=== PATIENT | male | born 1990 | race Caucasian/White ===

== ENCOUNTER 2025-07-02 19:16 | Emergency (ER) | payer BC, SELFPAY ==
--- NOTE | 2025-07-02 19:20 | ECG_ITS ---
Test Date: 2025-07-02 19:27:44 Measurements Intervals [place] Rate: 75 P: 44 NE: 187 QRS: 33 QRSD: 87 T: 30 QT: 370 QTc: 414 Interpretive Statements SINUS RHYTHM WITH MARKED SINUS ARRHYTHMIA BORDERLINE ECG No previous ECG available for comparison Electronically Signed On 07-03-2025 06:23:23 [employer] by Andrew Momin D.O.
[2025-07-02 19:32] VITALS: BP 155/87; PULSE 79; RESP 20; TEMP 37.2; O2SAT 98
--- NOTE | 2025-07-02 19:41 | ED.CHESTPAIN ---
HPI - Chest Pain General Chief Complaint: Chest Pain Stated Complaint: Chest Pain Time Seen by Provider: 07/02/25 19:30 Source: patient and RN notes reviewed Mode of arrival: ambulatory Limitations: no limitations History of Present Illness HPI narrative: 34-year-old male patient presents to the [facility] complaining of chest pain for last month. Patient says it comes and goes, reports it has left-sided substernal. Is patient says it starts randomly says is worse after he drinks alcohol. Patient reports feeling a pressure or burning in his chest when it occurs. Patient last drink 2 days ago reports he drank a lot alcohol that evening. Patient denies drinking daily but reports he drinks pretty heavily on the weekends. Patient denies any cardiac history, for any significant past medical problems. Patient awaiting to see a primary doctor next week. Patient last episode occurred approximately 30 minutes ago, reports having palpitations with a occur. Related Data Home Medications ?Medication ?Instructions ?Recorded ?Confirmed ?Last Taken ?Type oxygen-air delivery systems 07/02/25 07/02/25 Unknown History Allergies Allergy/AdvReac Type Severity Reaction Status Date / Time No Known Allergies Allergy Verified 07/02/25 19:31 Review of Systems Review of Systems: CONSTITUTIONAL: Denies fever, chills, or sweats. EYES: Denies visual changes, redness, or discharge. ENT: Denies rhinorrhea, congestion, sore throat, or otalgia. CARDIOVASCULAR: Positive for chest pain and palpitations. Negative for lightheadedness, dizziness, or edema. RESPIRATORY: Denies cough or dyspnea. GASTROINTESTINAL: Denies abdominal pain, nausea, vomiting, or diarrhea. GENITOURINARY: Denies dysuria or hematuria. SKIN: Denies rash or itching. MUSCULOSKELETAL: Denies back pain, joint pain, or myalgia. NEUROLOGIC: Denies headache, numbness, or weakness. PSYCHIATRIC: Denies anxiety or depression. All other systems reviewed are negative, except as documented in HPI. PMFSH Comments At the time of my signature, I reviewed and agree with the nursing past medical, surgical, social, and family history. There is no relevant family history pertinent to the patient complaint. Exam Narrative: GENERAL: This is a well-nourished, well-developed adult, in no apparent distress. They are non ill-appearing, nontoxic appearing. Patient appears anxious. HEAD: normocephalic, atraumatic. EYES: Sclera clear/white. Conjunctiva normal. Vision is grossly intact. Extraocular movements intact EARS: External ears normal, Hearing grossly intact. NOSE: External nose normal THROAT: Mucous membranes moist, NECK: Neck supple, CARDIOVASCULAR: Regular rate and rhythm without murmurs, gallops, or rubs. RESPIRATORY: Clear to auscultation. Breath sounds equal bilaterally. No wheezes, rales, or rhonchi. GASTROINTESTINAL: Abdomen soft, non-tender, nondistended. SKIN: warm, Dry, intact with no suspicious lesions or rash, good texture and turgor. NEURO: awake, alert, and oriented to person, place and time. There were no obvious focal neurologic abnormalities. Fine tremors are present. EXTREMITIES: No joint tenderness, effusion, or edema noted. BACK: Nontender without deformity. Course Course Level of Care: Express Care Visit Vital Signs Vital signs: Vital Signs Temperature 99.0 F 07/02/25 19:32 Pulse Rate 79 07/02/25 19:32 Respiratory Rate 20 07/02/25 19:32 Blood Pressure 155/87 H 07/02/25 19:32 Pulse Oximetry 98 07/02/25 19:32 Oxygen Delivery Room Air 07/02/25 19:32 Temperature 99.0 F 07/02/25 19:32 Pulse Rate 79 07/02/25 19:32 Respiratory Rate 20 07/02/25 19:32 Blood Pressure 155/87 H 07/02/25 19:32 Pulse Oximetry 98 07/02/25 19:32 Oxygen Delivery Room Air 07/02/25 19:32 [facility] Narrative Medical decision making narrative: EKG sinus arrhythmia with no ischemic findings. Patient would benefit from a cardiac workup, fine tremors present, patient is anxious complication could be withdrawing from alcohol as well. Given patient's symptoms, it is recommend the patient seek a higher level care and proceed immediately to the emergency department. Patient does not want to go to the ER will follow up with Next week. Patient has chosen to refuse further care. Risks of an incomplete evaluation and treatment were discussed with the patient, including but not limited to the potential for , worsening condition, or permanent disability. Patient verbalized understanding of these risks, but still desires to refuse further care. Patient recommended to follow up with PCP in the next possible interval. Specifically, patient was told he can return to the ED at any time to resume care. Differential Diagnosis Differential Diagnosis: Alcohol withdrawals, anxiety, stable angina, stable angina, acute coronary syndrome, heartburn, indigestion ECG Data EKG #1: ECG completion date: 07/02/25 ECG completion time: 19:27 Prior ECG tracings: not available for review normal rate, no ectopy, no ST changes, normal QRS, normal QT and other (Sinus arrhythmia) Critical Care Time Critical Care Time Critical Care Time: No Discharge Plan Discharge Clinical Impression: Chest pain Qualifiers: Chest pain type: unspecified Qualified Code(s): R07.9 - Chest pain, unspecified Patient Disposition: Left Against Medical Advice Condition: Stable Patient Language: Gabonese Prescriptions: No Action (DME) oxygen-air delivery systems [[employer] Nasal Cpap System] .ROUTE Follow-up/Referrals: PHYSICIAN,SWIMMING COACH OR INSTRUCTOR [Primary Care Provider, Internal Medicine] Time of Disposition: 19:39
--- OUTSIDE RECORDS SUMMARY | 2025-07-02 20:25 | XMS_ITS | Clinical Summary ---
Author Organization [address] Address [address] [place] [id number] Care Team Providers Care Supervisor [employer] Name Role Phone Miguel Angel Gar MD Primary Care Provider [phone] Allergies No known active allergies Medications No known medications Immunizations Immunization Administration Dates Next Due Influenza, Quadrivalent, Split, Intramuscular Surgical History Surgery Date Site/Laterality Comments WISDOM TOOTH EXTRACTION wisdom teeth extraction Family History Medical History Relation Name Comments Diabetes type II Father Diabetes me llitus type 2; Relation Name Status Comments Father Social History Tobacco Use Types Packs/Day Years Used Date Smoking Tobacco: Never Alcohol Use Standard Drinks/Week Comments Yes 0 (1 standard drink = 0.6 oz pur e alcohol) Sex and Gender Information Value Date Recorded Sex Assigned at Not on file Legal Sex Male 10:10 AM [employer] Gender Identity Not on file Sexual Orientation Not on file Last Filed Vital Signs Vital Sign Reading Time Taken Comments Blood Pressure 128/82 02/24/2019 11:18 AM CDT Pulse 95 02/24/2019 11:18 AM CDT Temperature 37.1 C (98.8 F) 02/24/2019 11:18 AM CDT Respiratory Rate - - Oxygen Saturation 96% 02/24/2019 11:18 AM CDT Inhaled Oxygen Concentration - - Weight 91.2 kg (201 lb) 02/24/2019 11:18 AM CDT Height 175.3 cm (5' 9.02) 02/24/2019 11:18 AM C DT Body Mass Index 29.67 02/24/2019 11:18 AM CDT Plan of Treatment Health Maintenance Due Date Last Done Comments Depression Screening 1991 Regular Well Visit/Exam 18-64 12/21/2009 HPV Vaccines (1 - 3-dose SCDM series) 12/21/2018 Varicella Vaccines (2 of 2 - 13+ 2-dose series) 08/21/2020 07/24/2020 Covid-19 Vaccine (3 - 2024- season) 2025 09/05/2020, 08/08/2020 Influenza Vaccine (#1) 2025 08/05/2016 DTaP/Tdap/Td Vaccine (8 - Td or Tdap) 07/09/2030 07/09/2020, 04/24/2008, 12/04/1996, Additional history exists Hepatitis B Screening Completed 06/07/2003 , 03/31/2002, 02/27/2002 Hepatitis C Screening Completed 03/27/2015 Pneumococcal vaccine <65 Aged Out No longer eligible based on patient's age to complete this topic Procedures Procedure Name Priority Date/Time Associated Diagnosis Comments SERUM HEPATITIS C AB Routine 03/27/2015 3:50 PM CDT from Last 3 Months or Most Recently Relevant to Health Maintenance Results * Serum Hepatitis C ab (03/27/2015 3:50 PM CDT) HCV ab Negative Negative HISTORICAL RESULTS Serum 03/27/2015 3:50 PM CDT Miguel Angel Gar MD LAB BLOOD ORDERABLES Final Result HISTORICAL RESULTS from Last 3 Months or Most Recently Relevant to Health Maintenance Insurance [facility] Care Teams Supervisor [employer] Cans Relationship Specialty Start Date End Date Miguel Angel Gar MD PCP - General 10/23/16
== END 2025-07-02 19:45 | disposition left against medical advice (07) ==
DX: R07.9 Chest pain, unspecified (principal); G47.30 Sleep apnea, unspecified
CPT/HCPCS: 93005; 99213; G0463